=== PATIENT | male | born 1980 | race Caucasian/White ===

== ENCOUNTER 2018-10-14 00:04 | Observation (INO) | payer MEDICAID ==
[~2018-10-14] VITALS: Ht 167.6 cm; Wt 72.9 kg
[2018-10-14] VITALS (7 sets, daily range): BP systolic 118–131; BP diastolic 63–87; PULSE 60–73; RESP 17–18; Ht 167.6 cm; Wt 72.9 kg
--- NOTE | 2018-10-14 00:35 | ERD ---
ER Documentation Chief Complaint Chief Complaint chest pain/sob/syncope around 11 am. seen at clinic today, sent for eval HPI The patient is a 38-year-old male, presenting to the ER because of substernal chest pain radiating to the left arm at 2 PM, 11/08, non-provoked, denies similar symptoms previously. He then had a syncopal episode and fell, denies headache, complains of dizziness, denies neck pain, denies chest pain with vom iting/radiation/exertion/diaphoresis, dyspnea, complains of diffuse abdominal pain more painful at the left upper quadrant, complains of painful urination, denies diarrhea/ constipation. He does not smoke nor drink or does illicit drug Past medical/surgical history: None ROS All systems reviewed and are negative except as per history of present illness. Allergies Allergies: Coded Allergies: No Known Drug Allergies (Verified Allergy, Unknown, 10/14/18) Physical Exam Vitals Vital Signs Date Temp Pulse Resp B/P (MAP) Pulse Ox O2 O2 Flow FiO2 Time Delivery Rate 10/14/18 98.0 55 18 131/81 99 Room Air 01:49 (98) 10/14/18 62 16 123/83 100 Room Air 01:49 (96) 10/14/18 98.0 62 18 143/88 99 00:13 (106) Physical Exam Const: No acute distress. Head: Atraumatic. Eyes: Normal Conjunctiva. ENT: Normal External Ears, Nose and Mouth. Neck: Full range of motion. No meningismus. Resp: Clear to auscultation bilaterally. Cardio: Regular rate and rhythm. Abd: Soft, non distended, normal bowel sounds, moderate left lower quadrant tenderness, no rigidity/rebound/CVA tenderness Skin: No petechiae or rashes. Back: No midline or flank tenderness. Ext: No cyanosis, or edema. Neur: Awake and alert. No focal deficit Psych: Normal Mood and Affect. Result Diagram: 10/14/180 10/14/18 0040 Results 24 hrs Laboratory Tests Test 10/14/18 00:40 10/14/18 01:48 10/14/18 03:21 White Blood Count 8.8 10^3/ul Red Blood Count 5.47 10^6/ul Hemoglobin 16.2 g/dl Hematocrit 46.2 % Mean Corpuscular Volume 84.5 fl Mean Corpuscular Hemoglobin 29.6 pg Mean Corpuscular 35.1 g/dl Hemoglobin Concent Red Cell Distribution Width 12.3 % Platelet Count 292 10^3/UL Mean Platelet Volume 11.0 fl Immature Granulocytes % 0.600 % Neutrophils % 53.6 % Lymphocytes % 33.4 % Monocytes % 7.6 % Eosinophils % 4.0 % Basophils % 0.8 % Nucleated Red Blood Cells % 0.0 /100WBC Immature Granulocytes # 0.050 10^3/ul Neutrophils # 4.7 10^3/ul Lymphocytes # 2.9 10^3/ul Monocytes # 0.7 10^3/ul Eosinophils # 0.4 10^3/ul Basophils # 0.1 10^3/ul Nucleated Red Blood Cells # 0.0 10^3/ul D-Dimer 270.29 ng/ml D-Dimer Comment Sodium Level 141 mmol/L Potassium Level 3.7 mmol/L Chloride Level 101 mmol/L Carbon Dioxide Level 29 mmol/L Anion Gap 11 Blood Urea Nitrogen 22 mg/dl Creatinine 0.97 mg/dl Est Glomerular Filtrat Rate mL/min > 60 mL/min Glucose Level 117 mg/dl Calcium Level 9.7 mg/dl Total Bilirubin 0.4 mg/dl Direct Bilirubin 0.00 mg/dl Indirect Bilirubin 0.4 mg/dl Aspartate Amino Transf (AST/SGOT) 35 IU/L Alanine 71 IU/L Aminotransferase (ALT/SGPT) Alkaline Phosphatase 78 IU/L Troponin I 0.019 ng/ml Total Protein 8.0 g/dl Albumin 4.5 g/dl Globulin 3.50 g/dl Albumin/Globulin Ratio 1.28 Lipase 97 U/L Ethyl Alcohol Level < 10.0 mg/dl Bedside Glucose 103 mg/dL Bedside Urine pH (LAB) 6.5 Bedside Urine Protein (LAB) Negative Bedside Urine Glucose (UA) Negative Bedside Urine Ketones (LAB) Negative Bedside Urine Blood Negative Bedside Urine Nitrite (LAB) Negative Bedside Urine Leukocyte Esterase Negative (L Current Medications Medications Dose Sig/Dalton Start Time Status Last (Trade) Ordered Route PRN Stop Time Admin Dose Reason Admin Ketorolac 15 mg ONCE STAT 10/14/18 DC 10/14/18 Tromethamine IV 02:58 03:19 (Toradol) 10/14/18 03:00 Procedures/[place] [id number] Radiology Main Line: [phone] DIAGNOSTIC IMAGING REPORT Patient: IRCHARD SHAFFER : 1980 Age: 38 Sex: M MR #: [id number] [facility] #: [id number] DOS: 10/14/18 0124 Ordering MD: IRENE LU MD Location: E/R Room/Bed: PROCEDURE: CT ABDOMEN/PELVIS WITHOUT CONTRAST CLINICAL INDICATION: 38-year-old male with left lower quadrant abdominal pain. TECHNIQUE: The study was performed utilizing a [employer] VCT 64-slice CT scanner. Direct axial sections were obtained through the abdomen and pelvis without the use of intravenous contrast material. Sagittal and coronal reformations were obtained. One or more of the following dose reduction techniques were utilized: automated exposure control, adjustment of the mA and/or kV according to patient's size, use of iterative reconstruction technique. DICOM images are available. The images were reviewed on a PACS work station. CTD/vol = 14.54 mGy; Total Exam DLP = 853.39 mGy.cm. COMPARISON: None. FINDINGS: There is minimal bibasilar subsegmental atelectasis. There is a calcified 3 mm granuloma within the right lung base on axial image 3-9. There is no evidence for significant pleural effusion. The liver has a normal size and contour without focal areas of abnormal density. No intrahepatic nor extrahepatic biliary ductal dilatation is seen. The gallbladder is partially collapsed without evidence for calcified stones, significant wall thickening or pericholecystic fluid. The pancreas is without areas of abnormal attenuation. The spleen is identified and has a normal size without abnormal density. The adrenal glands are unremarkable. The kidneys are without abnormal density. No hydroureteronephrosis nor nephroureterolithiasis is evident. The urinary bladder contains urine. There is mild thickening and fluid identified throughout the small bowel suggestive of an enteritis. There is mild retained stool identified within the colon without obstruction. The appendix is visualized and is without abnormal thickening or surrounding inflammatory reaction. The prostate is not enlarged. There is no significant free fluid. Shotty mesenteric lymph nodes are present. The aortoiliac vessels are without aneurysmal dilatation. There are limbus vertebra identified within the anterosuperior aspect of the L3 and L4 vertebral bodies. IMPRESSION: 1. Mild thickening and fluid throughout the small bowel suggestive of an enteritis. 2. Retained stool without obstruction. 3. No CT evidence for appendicitis. 4. Shotty mesenteric lymph nodes. 5. Right lung base 3 mm granuloma. .Rafael Charles MD, Date Time Electronically viewed and signed by .Rafael Charles MD, MD on 10/14/2018 02:28 .M/ CC: IRENE LU MD [id number] [place] [address] Radiology Main Line: [phone] DIAGNOSTIC IMAGING REPORT Patient: RICHARD SHAFFER : 1980 Age: 38 Sex: M MR #: [id number] DOS: 10/14/18 0124 Ordering MD: IRENE LU MD Location: E/R Room/Bed: PROCEDURE: CT BRAIN WITHOUT CONTRAST CLINICAL INDICATION: 38-year-old male with syncope. TECHNIQUE: The study was performed utilizing [employer] VCT 64-slice CT scanner. Direct axial sections were obtained from the foramen magnum to the vertex without the use of intravenous contrast material. Sagittal and coronal reformations were obtained. One or more of the following dose reduction techniques were utilized: automated exposure control, adjustment of the mA and/or kV according to patient's size or use of iterative reconstruction technique. DICOM images are available. The images were viewed on a PACS workstation. CTD/vol = 39.64 mGy; Total Exam DLP = 634.23 mGy.cm. COMPARISON: None. FINDINGS: The ventricles have a normal size, shape and position. There is no evidence for mass effect or midline shift. There are no intracranial areas of abnormal attenuation. There is no evidence for acute intra or extra-axial blood. The bony calvarium is intact. The partially visualized paranasal sinuses and mastoid air cells are without significant abnormal soft tissue. IMPRESSION: Unremarkable noncontrast CT scan of the brain. .Rafael Charles MD, MD Date Time Electronically viewed and signed by .Rafael Charles MD, MD on 10/14/2018 02:21 .M/ CC: IRENE LU MD [id number] [place] [address] Radiology Main Line: [phone] DIAGNOSTIC IMAGING REPORT Patient: RICHARD SHAFFER : 1980 Age: 38 Sex: M MR #: [id number] DOS: 10/14/18 0124 Ordering MD: IRENE LU MD Location: E/R Room/Bed: PROCEDURE: CHEST - 1 VIEW CLINICAL INDICATION: 38-year-old male with syncope. TECHNIQUE: A single frontal upright AP portable view of the chest was performed. The images were reviewed on a PACS workstation. COMPARISON: None. FINDINGS: The cardiomediastinal silhouette has a normal appearance. There is a shallow inspiration. There is minimal bibasilar subsegmental atelectasis. There is no evidence for an infiltrate. There is no evidence for congestive heart failure. There is no evidence for pneumothorax. The osseous structures are intact. IMPRESSION: Shallow inspiration with minimal bibasilar subsegmental atelectasis. .Rafael Charles MD, MD Date Time Electronically viewed and signed by .Rafael Charles MD, MD on 10/14/2018 02:29 .M/ CC: IRENE LU MD [id number] EKG: Read by emergency physician Rate/Rhythm: Sinus bradycardia 57 beats/min QRS, ST, T-waves: No ST elevation, no T inversion Impression: Abnormal EKG UDS Pending MEDICAL MAKING DECISION: The patient is a 38-year-old male, presenting with acute chest pain, acute syncope. He was treated with Toradol 50 mg IV for pain The differential diagnoses for acute chest pain considered include but are not limited to acute coronary syndrome, acute myocardial infarction, pericarditis, pulmonary embolism, aortic dissection, pneumonia, pleural effusion, pneumothorax, GERD, chest wall pain. The differential diagnoses for acute syncope considered include but are not limited to arrhythmogenic right ventricular dysplasia, Brugada syndrome, left ventricular hypertrophy, pulmonary embolism, QT abnormality, Revg-[id number]-Ophnd. Departure Diagnosis: Primary Impression: Syncope Additional Impression: Chest pain Condition: Stable Comments The patient's blood pressure was elevated (>120/80) but appears stable without evidence of hypertension emergency or urgency. The patient was counseled about the risks of hypertension and urged to pursue outpatient monitoring and therapy within a week with their primary care physician. I discussed the findings with the patient. I discussed the patient with Dr Durand at 3 am , who was made aware of the lab, the treatment, the patient condition. The patient is admitted to [facility] Disclaimer: Inadvertent spelling and grammatical errors are likely due to E HR/dictation software use and do not reflect on the overall quality of patient care. Also, please note that the electronic time recorded on this note does not necessarily reflect the actual time of the patient encounter. IRENE LU MD Oct 14, 2018 00:35
[2018-10-14] MEDS ORDERED: KETOROLAC 15 MG INJ IV STA (02:58)
--- NOTE | 2018-10-14 04:18 | HP ---
Date/Time of Note Date/Time of Note DATE: 10/14/18 TIME: 04:16 Assessment/Plan VTE Prophylaxis SCD applied (from Nsg): Yes Pharmacological prophylaxis: NA/contraindicated Pharm contraindication: low risk/ambulating Lines/Catheters IV Catheter Type (from Nrsg): Saline Lock Assessment/Plan Hospital Course This is a 38-year male being admitted to the telemetry floor for observation for: #1 chest pain: Rule out ACS versus other. Will check cardiac enzymes x3, the first that was negative. EKG is nonischemic.Will check echocardiogram. Will check hemoglobin and C, lipid panel, TSH, Consider cardio consult #2 syncopal episode: Arrhythmia versus vasovagal versus versus situational. In the setting of chest pain. Will check for arrhythmias, cardiac etiology. Will check carotid Dopplers. Will check an echocardiogram. Will check orthostatics. #3 abdominal pain: Possibly secondary to underlying enteritis, constipation. We will put the patient currently on a brat diet., Stool softeners. No signs of fevers. #4 DVT GI prophylaxis: SCDs, no GI prophylaxis indicated further treatment strategy will be implemented as per the clinical course. Result Diagram: 10/14/18 0040 10/14/18 0040 Results 24hrs Laboratory Tests Test 10/14/18 00:40 10/14/18 01:48 10/14/18 03:10 10/14/18 03:21 White Blood Count 8.8 Red Blood Count 5.47 Hemoglobin 16.2 Hematocrit 46.2 Mean Corpuscular 84.5 Volume Mean Corpuscular 29.6 Hemoglobin Mean Corpuscular 35.1 Hemoglobin Concent Red Cell 12.3 Distribution Width Platelet Count 292 Mean Platelet Volume 11.0 H Immature 0.600 H Granulocytes % Neutrophils % 53.6 Lymphocytes % 33.4 Monocytes % 7.6 Eosinophils % 4.0 Basophils % 0.8 Nucleated Red Blood 0.0 Cells % Immature 0.050 H Granulocytes # Neutrophils # 4.7 Lymphocytes # 2.9 Monocytes # 0.7 Eosinophils # 0.4 Basophils # 0.1 Nucleated Red Blood 0.0 Cells # D-Dimer 270.29 D-Dimer Comment Sodium Level 141 Potassium Level 3.7 Chloride Level 101 Carbon Dioxide Level 29 Anion Gap 11 Blood Urea Nitrogen 22 H Creatinine 0.97 Est Glomerular > 60 Filtrat Rate mL/min Glucose Level 117 Calcium Level 9.7 Total Bilirubin 0.4 Direct Bilirubin 0.00 Indirect Bilirubin 0.4 Aspartate Amino 35 Transf (AST/SGOT) Alanine 71 H Aminotransferase (AL T/SGPT) Alkaline Phosphatase 78 Troponin I 0.019 Total Protein 8.0 Albumin 4.5 Globulin 3.50 H Albumin/Globulin 1.28 Ratio Lipase 97 Ethyl Alcohol Level < 10.0 H Bedside Glucose 103 Urine Opiates Screen Negative Urine Barbiturates Negative Urine Amphetamines Negative Screen Urine Negative Benzodiazepines Screen Urine Cocaine Screen Negative Urine Cannabinoids Negative Bedside Urine pH 6.5 (LAB) Bedside Urine Negative Protein (LAB) Bedside Urine Negative Glucose (UA) Bedside Urine Negative Ketones (LAB) Bedside Urine Blood Negative Bedside Urine Negative Nitrite (LAB) Bedside Urine Negative Leukocyte Esterase (L HPI/ROS Admit Date/Time Admit Date/Time Hx of Present Illness cc: cp, syncope The patient is a 38-year-old male, presenting to the ER for chest pain. He reports having chest pain radiating to the left arm at 2 PM, 7/10. After the chest pain, he then fainted and fell. He denies headache, patient also was complaining of abdominal pain in the emergency department at the left upper quadrant. He had CT of the abdomen pelvis that was done which shows signs of possible enteritis and constipation. Denies any illicit drug use or smoking. allergies: nkda meds: none ROS Const: As per HPI Eyes : No pain discharge or redness or change in visual acuity ENT: No pain, sore throat, congestion, congestion, dysphagia or discharge Respiratory: No shortness of breath, cough, sputum, wheezing, or pleuritic pain Cardiovascular: As per HPI GI : As per HPI Genitourinary: No dysuria, hematuria, flank pain , discharge or CVA tenderness Musculoskeletal: No joint pain, back pain, neck pain, restricted range of motion in neck or joints Skin: No rash, bruising or hives Neuro: No headache, dizziness, syncope, seizure, focal weakness Endocrine: No polyuria, polydipsia, temperature intolerance Psych: No hallucination, depression, anxiety or suicidal ideation PMH/Family/Social Past Medical History Medical History: no pertinent history Coded Allergies: No Known Drug Allergies (Verified Allergy, Unknown, 10/14/18) Past Surgical History Past Surgical Hx: no surgical history Family History Significant Family History: no pertinent family hx Social History Alcohol Use: none Smoking Status: Never smoker Drug Use: none Exam/Review of Systems Vital Signs Vitals Vital Signs Date Temp Pulse Resp B/P (MAP) Pulse Ox O2 O2 Flow FiO2 Time Delivery Rate 10/14/18 98.0 55 18 131/81 99 Room Air 01:49 (98) Exam Exam General: Patient is a pleasant male currently lying in bed in no acute distress HEENT: Atraumatic, normocephalic. The pupils are equal, round and reactive. Extraocular motor are intact Neck: Supple with full range of motion. No rigidity or meningismus Chest: Nontender Lungs: Clear to auscultation bilaterally no crackles rales or wheezing Heart: Normal S1-S2, Regular rhythm and rate. No murmur, S3, or S4 Abdomen: Soft , nontender, nondistended , bowel sounds are present. No guarding no rebound tenderness , No masses or organomegaly. No costovertebral temporal angle mass Extremities: Normal to inspection, no edema no cyanosis Neurologic: Normal mental status, speech normal, cranial nerves II through XII are intact, motor and sensory are intact, Additional Comments EKG: Read by emergency physician Rate/Rhythm: Sinus bradycardia 57 beats/min QRS, ST, T-waves: No ST elevation, no T inversion PROCEDURE: CT ABDOMEN/PELVIS WITHOUT CONTRAST CLINICAL INDICATION: 38-year-old male with left lower quadrant abdominal pain. TECHNIQUE: The study was performed utilizing a [employer] VCT 64-slice CT scanner. Direct axial sections were obtained through the abdomen and pelvis without the use of intravenous contrast material. Sagittal and coronal reformations were obtained. One or more of the following dose reduction techniques were utilized: automated exposure control, adjustment of the mA and/or kV according to patient's size, use of iterative reconstruction technique. DICOM images are available. The images were reviewed on a PACS workstation. CTD/vol = 14.54 mGy; Total Exam DLP = 853.39 mGy.cm. COMPARISON: None. FINDINGS: There is minimal bibasilar subsegmental atelectasis. There is a calcified 3 mm granuloma within the right lung base on axial image 3-9. There is no evidence for significant pleural effusion. The liver has a normal size and contour without focal areas of abnormal density. No intrahepatic nor extrahepatic biliary ductal dilatation is seen. The gallbladder is partially collapsed without evidence for calcified stones, significant wall thickening or pericholecystic fluid. The pancreas is without areas of abnormal attenuation. The spleen is identified and has a normal size without abnormal density. The adrenal glands are unremarkable. The kidneys are without abnormal density. No hydroureteronephrosis nor nephroureterolithiasis is evident. The urinary bladder contains urine. There is mild thickening and fluid identified throughout the small bowel suggestive of an enteritis. There is mild retained stool identified within the colon without obstruction. The appendix is visualized and is without abnormal thickening or surrounding inflammatory reaction. The prostate is not enlarged. There is no significant free fluid. Shotty mesenteric lymph nodes are present. The aortoiliac vessels are without aneurysmal dilatation. The re are limbus vertebra identified within the anterosuperior aspect of the L3 and L4 vertebral bodies. IMPRESSION: 1. Mild thickening and fluid throughout the small bowel suggestive of an enteritis. 2. Retained stool without obstruction. 3. No CT evidence for appendicitis. 4. Shotty mesenteric lymph nodes. 5. Right lung base 3 mm granuloma. .Rafael Charles MD, MD Date Time Electronically viewed and signed by .Rafael Charles MD, MD on 10/14/2018 02:28 .M/ CC: IRENE LU MD [phone] PROCEDURE: CT BRAIN WITHOUT CONTRAST CLINICAL INDICATION: 38-year-old male with syncope. TECHNIQUE: The study was performed utilizing [employer] V[employer] 64-slice CT scanner. Direct axial sections were obtained from the foramen magnum to the vertex without the use of intravenous contrast material. Sagittal and coronal reformations were obtained. One or more of the following dose reduction techniques were utilized: automated exposure control, adjustment of the mA and/or kV according to patient's size or use of iterative reconstruction technique. DICOM images are available. The images were viewed on a PACS workstation. CTD/vol = 39.64 mGy; Total Exam DLP = 634.23 mGy.cm. COMPARISON: None. FINDINGS: The ventricles have a normal size, shape and position. There is no evidence for mass effect or midline shift. There are no intracranial areas of abnormal attenuation. There is no evidence for acute intra or extra-axial blood. The bony calvarium is intact. The partially visualized paranasal sinuses and mastoid air cells are without significant abnormal soft tissue. IMPRESSION: Unremarkable noncontrast CT scan of the brain. .Rafael Charles MD, MD Date Time Electronically viewed and signed by .Rafael Charles MD, MD on 10/14/2018 02:21 .M/ CC: IRENE LU MD [phone] PROCEDURE: CHEST - 1 VIEW CLINICAL INDICATION: 38-year-old male with syncope. TECHNIQUE: A single frontal upright AP portable view of the chest was performed. The images were reviewed on a PACS workstation. COMPARISON: None. FINDINGS: The cardiomediastinal silhouette has a normal appearance. There is a shallow inspiration. There is minimal bibasilar subsegmental atelectasis. There is no evidence for an infiltrate. There is no evidence for congestive heart failure. There is no evidence for pneumothorax. The osseous structures are intact. IMPRESSION: Shallow inspiration with minimal bibasilar subsegmental atelectasis. .Rafael Charles MD, MD Date Time Electronically viewed and signed by .Rafael Charles MD, MD on 10/14/2018 02:29 .M/ CC: IRENE LU MD [id number] JW LARIOS Oct 14, 2018 04:18
[2018-10-14] MEDS ORDERED: ACETAMINOPHEN 325 MG TAB PO PRN (04:30)
[2018-10-14] MEDS ORDERED: NACL 0.9% 3 ML SYG IV SCH (04:30)
[2018-10-14] MEDS ORDERED: NITROGLYCERIN (SL) 0.4 MG TAB SL PRN (04:30)
[2018-10-14] MEDS ORDERED: BISACODYL (EC) 5 MG TAB PO PRN (04:30)
[2018-10-14] MEDS ORDERED: DOCUSATE SODIUM 100 MG CAP PO PRN (04:30)
[2018-10-14] MEDS ORDERED: ONDANSETRON 4 MG INJ IV PRN (04:30)
[2018-10-14] MEDS ORDERED: morphine 2 MG INJ IV PRN (04:30)
[2018-10-14] MEDS: DOCUSATE SODIUM 100 MG CAP PO SCH ×2 (09:00→20:31)
[2018-10-14] MEDS: ASPIRIN 81 MG TAB PO SCH (09:00)
--- NOTE | 2018-10-14 14:51 | PN ---
Date/Time of Note Date/Time of Note DATE: 10/14/18 TIME: 14:44 Assessment/Plan VTE Prophylaxis SCD applied (from Nsg): Yes Pharmacological prophylaxis: NA/contraindicated Pharm contraindication: low risk/ambulating Lines/Catheters IV Catheter Type (from Nrsg): Saline Lock Assessment/Plan Assessment/Plan 38 yo man no PMH presents with chest pain followed by syncope. # chest pain #Syncope - Patient reports almost 12 hours of pressure-like chest pain and dyspnea followed by syncope. He reports having chest pain for almost a year on and off. - Father had "enlarged heart" - Labs so far unremarkable, except for subclinical hypothyroidism. - Trops negative x3. - EKG with early repolarization abnormality, otherwise normal. - Likely will need CT coronary angiogram versus stress test prior to discharge - 24 hours telemetry monitoring. - Dr. Stockton consulted. #Abdominal pain - resolved. # DVT GI prophylaxis: SCDs, no GI prophylaxis indicated Result Diagram: 10/14/1852810/14/18528 Subjective 24 Hr Interval Summary Free Text/Dictation No acute overnight events. No events on telemetry. History is unusual. 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 On Tuesday (day of admission) he developed pressure-like chest pain soon after noon but continued working, pain remained constant; and it wasn't until he was about to go to bed around midnight that he lost consciousness and fell to the floor. He reports he still has chest pain currently. Exam/Review of Systems Exam Vitals Vital Signs Date Temp Pulse Resp B/P (MAP) Pulse Ox O2 O2 Flow FiO2 Time Delivery Rate 10/14/18 60 12:17 10/14/18 97.5 18 123/78 Room Air 10:57 (93) 10/14/18 98 10:00 Exam General: Subdued young man lying in bed in no acute distress. Psych: Very blunted affect, mumbling speech. Cooperative with exam. HEENT: Atraumatic, normocephalic. The pupils are equal, round and reactive. Extraocular motor are intact Neck: Supple with full range of motion. No JVD. Chest: Nontender Lungs: Clear to auscultation bilaterally no crackles rales or wheezing Heart: Normal S1-S2, Regular rhythm and rate. No murmur, S3, or S4 Abdomen: Soft , nontender, nondistended , bowel sounds are present. Extremities: Normal to inspection, no edema no cyanosis Results Results 24hrs Laboratory Tests Test 10/14/18 00:40 10/14/18 01:48 10/14/18 03:10 10/14/18 03:21 White Blood Count 8.8 Red Blood Count 5.47 Hemoglobin 16.2 Hematocrit 46.2 Mean Corpuscular 84.5 Volume Mean Corpuscular 29.6 Hemoglobin Mean Corpuscular 35.1 Hemoglobin Concent Red Cell 12.3 Distribution Width Platelet Count 292 Mean Platelet Volume 11.0 H Immature 0.600 H Granulocytes % Neutrophils % 53.6 Lymphocytes % 33.4 Monocytes % 7.6 Eosinophils % 4.0 Basophils % 0.8 Nucleated Red Blood 0.0 Cells % Immature 0.050 H Granulocytes # Neutrophils # 4.7 Lymphocytes # 2.9 Monocytes # 0.7 Eosinophils # 0.4 Basophils # 0.1 Nucleated Red Blood 0.0 Cells # D-Dimer 270.29 D-Dimer Comment Sodium Level 141 Potassium Level 3.7 Chloride Level 101 Carbon Dioxide Level 29 Anion Gap 11 Blood Urea Nitrogen 22 H Creatinine 0.97 Est Glomerular > 60 Filtrat Rate mL/min Glucose Level 117 Calcium Level 9.7 Total Bilirubin 0.4 Direct Bilirubin 0.00 Indirect Bilirubin 0.4 Aspartate Amino 35 Transf (AST/SGOT) Alanine 71 H Aminotransferase (AL T/SGPT) Alkaline Phosphatase 78 Troponin I 0.019 Total Protein 8.0 Albumin 4.5 Globulin 3.50 H Albumin/Globulin 1.28 Ratio Lipase 97 Free Thyroxine 0.97 Ethyl Alcohol Level < 10.0 H Bedside Glucose 103 Urine Opiates Screen Negative Urine Barbiturates Negative Urine Amphetamines Negative Screen Urine Negative Benzodiazepines Screen Urine Cocaine Screen Negative Urine Cannabinoids Negative Bedside Urine pH 6.5 (LAB) Bedside Urine Negative Protein (LAB) Bedside Urine Negative Glucose (UA) Bedside Urine Negative Ketones (LAB) Bedside Urine Blood Negative Bedside Urine Negative Nitrite (LAB) Bedside Urine Negative Leukocyte Esterase (L Test 10/14/18 05:29 10/14/18 10:52 White Blood Count 7.8 Red Blood Count 5.55 Hemoglobin 16.4 Hematocrit 47.1 Mean Corpuscular 84.9 Volume Mean Corpuscular 29.5 Hemoglobin Mean Corpuscular 34.8 Hemoglobin Concent Red Cell 12.4 Distribution Width Platelet Count 283 Mean Platelet Volume 10.6 H Immature 0.500 H Granulocytes % Neutrophils % 49.0 Lymphocytes % 37.3 Monocytes % 8.2 Eosinophils % 4.1 Basophils % 0.9 Nucleated Red Blood 0.0 Cells % Immature 0.040 H Granulocytes # Neutrophils # 3.8 Lymphocytes # 2.9 Monocytes # 0.6 Eosinophils # 0.3 Basophils # 0.1 Nucleated Red Blood 0.0 Cells # Sodium Level 139 Potassium Level 4.1 Chloride Level 102 Carbon Dioxide Level 27 Anion Gap 10 Blood Urea Nitrogen 19 Creatinine 0.94 Est Glomerular > 60 Filtrat Rate mL/min Glucose Level 112 Hemoglobin A1c 5.5 Calcium Level 9.6 Magnesium Level 2.0 Total Bilirubin 0.4 Direct Bilirubin 0.00 Indirect Bilirubin 0.4 Aspartate Amino 33 Transf (AST/SGOT) Alanine 71 H Aminotransferase (AL T/SGPT) Alkaline Phosphatase 70 Creatine Kinase 149 121 Creatine Kinase 1.5 1.3 Index Creatinine Kinase MB 2.30 1.63 (Mass) Troponin I < 0.012 < 0.012 Total Protein 7.3 Albumin 4.4 Globulin 2.90 Albumin/Globulin 1.51 Ratio Triglycerides Level 268 H Cholesterol Level 226 H LDL Cholesterol, 141 Calculated HDL Cholesterol 31 Cholesterol/HDL 7.2 Ratio Thyroid Stimulating 5.740 H Hormone (TSH) Medications Medication Current Medications IV Flush (NS 3 ml) 3 ml PER PROTOCOL IV ; Start 10/14/18 at 04:30 Ondansetron HCl (Zofran Inj) 4 mg Q6H PRN IV NAUSEA/VOMITING; Start 10/14/18 at 04:30 Aspirin (Aspirin) 81 mg DAILY PO Last administered on 10/14/18at 09:00; Admin Dose 81 MG; Start 10/14/18 at 09:00 Nitroglycerin (Nitroglycerin (Sl Tab) 0.4 Mg) 1 tab Q5M PRN SL .CHEST PAIN; Start 10/14/18 at 04:30 Acetaminophen (Tylenol Tab) 650 mg Q6H PRN PO .PAIN 1-3 OR TEMP; Start 10/14/18 at 04:30 Morphine Sulfate (morphine) 2 mg Q4H PRN IV .PAIN 7-10; Start 10/14/18 at 04:30 Docusate Sodium (Colace) 100 mg Q12H PRN PO .CONSTIPATION; Start 10/14/18 at 04:30 Bisacodyl (Dulcolax) 5 mg DAILY PRN PO .CONSTIPATION; Start 10/14/18 at 04:30 Docusate Sodium (Colace) 100 mg BID PO ; Start 10/14/18 at 09:00 TAYLA COPE MD Oct 14, 2018 14:51
[2018-10-14] MEDS: FAMOTIDINE 20 MG TAB PO SCH ×2 (16:32→20:31)
--- NOTE | 2018-10-14 17:49 | RADRPT ---
Echocardiogram Report Patient Name: RICHARD SHAFFERPatient ID: [id number] : 1980 (38y 7m)Study Date: 10/14/2018 1:45:23 PM Gender: MAccession #: [id number] Tech: Reta Villagomez [facility] Location: [id number] Ref.Physician: JW LARIOS Height(Cm): BSA: Weight(Kg): Quality: AdequateOrder Physician: JW LARIOS Account #: Procedures: Echocardiographic Report: Transthoracic echocardiogram with complete 2D, M-Mode, and doppler examination. Indications: Chest Pain. Measurements: 2D/M Mode Doppler Measurement Value Normal Range Measurement Value Normal Range LVIDd 2D 4.3 [ 4.2 - 5.8 ] cm AV Peak Lobito 1.3 [ 100.0 - 170.0 ] cm/se c LVIDs 2D 3.0 [ 2.5 - 4.0 ] cm AV Peak PG 6.0 [ 2.0 - 9.0 ] mmHg LVPWd 2D 1.0 [ 0.6 - 1.0 ] cm LVOT Peak [place] 0.9 [ 70.0 - 110.0 ] cm/sec IVSd 2D 1.0 [ 0.6 - 1.0 ] cm LVOT Peak PG 3.0 [ 2.0 - 6.0 ] mmHg AoR Diam 2D 2.7 [ 2.6 - 3.4 ] cm MV E Peak L[place]ito 0.4 [ 60.0 - 130.0 ] cm/sec EDV 2D 84.0 [ 62.0 - 150.0 ] ml MV A Peak [place]ito 0.3 [ 100.0 - 120.0 ] cm/se c ESV 2D 34.2 [ 21.0 - 61.0 ] ml MV E/A 1.2 [ 0.8 - 1.5 ] ratio EF 2D 59.3 [ 52.0 - 72.0 ] percent MV PHT 105.0 [ 20.0 - 100.0 ] msec LA Dimen 2D 2.6 [ 3.0 - 4.0 ] cm MV Decel Time 359 [ 104 - 258 ] msec MV Decel Adams 1 Lat E` Lobito 0.1 [ 10.0 - 15.0 ] cm/sec Lateral E/E` 3.1 [ 1.0 - 2.0 ] ratio Med E` Lobito 0.1 cm/sec MV E/A 1.2 [ 0.8 - 1.5 ] ratio MVA PHT 2.1 [ 2.0 - 4.0 ] cm2 Findings: Left Ventricle: Normal left ventricular systolic function. Normal left ventricular cavity size. Normal left ventricular wall thickness. Ejection fraction is visually estimated at 55-60 %. Tissue Doppler/Mitral Doppler indices are within normal limits. Right Ventricle: Normal right ventricular size. Normal right ventricular systolic function. Left Atrium: The left atrium is normal in size. Right Atrium: The right atrium is normal in size. Mitral Valve: Normal appearance of the mitral valve. Trace mitral regurgitation. Aortic Valve: Normal appearance of the aortic valve. No aortic regurgitation. Tricuspid Valve: Normal appearance of the tricuspid valve. There is trace tricuspid regurgitation. Pulmonic Valve: Normal pulmonic valve appearance. No evidence of pulmonic regurgitation. Pericardium: Normal pericardium with no significant pericardial effusion. Aorta: Normal aortic root. IVC: Normal size and normal respiratory collapse consistent with normal right atrial pressure. Conclusions: Normal left ventricular systolic function. Normal left ventricular cavity size. Normal left ventricular wall thickness. Ejection fraction is visually estimated at 55-60 %. Tissue Doppler/Mitral Doppler indices are within normal limits. Normal right ventricular size. Normal right ventricular systolic function. Trace mitral regurgitation. There is trace tricuspid regurgitation. Normal pericardium with no significant pericardial effusion. Electronically Signed By: Patrick Stockton 2018-10-14 17:48:31 PDT
[2018-10-14] MEDS ORDERED: ATORVASTATIN 40 MG TAB PO SCH (21:00)
[2018-10-15] VITALS: PULSE 58
--- NOTE | 2018-10-15 03:44 | CONS ---
DATE OF ADMISSION: 10/14/2018 DATE OF CONSULTATION: 10/14/2018 REASON FOR CONSULTATION: Chest pain with syncopal episode. HISTORY OF PRESENT ILLNESS: The patient is a 38-year-old gentleman who comes in with a constant ches t pain associated with syncopal episode. He does complain of numbness and radiation to the left uppe r extremity. Denies nausea, vomiting. Denies shortness of breath, dizziness or palpitation. Denies fever, chills, or rigors. Denies history of coronary artery disease. FAMILY HISTORY: Denies myocardial infarction or sudden cardiac . PAST SURGICAL HISTORY: None. SOCIAL HISTORY: No smoking, alcohol, or recreational drugs. ALLERGIES: None. CURRENT MEDICATIONS: Include aspirin. REVIEW OF SYSTEMS: Unremarkable except that mentioned in the HPI. PHYSICAL EXAMINATION: VITAL SIGNS: Temperature 97.5, heart rate of 60, blood pressure 123/78 mmHg, breathing at 18, satura ting 98% on room air. GENERAL: Patient awake, alert, oriented, no apparent distress. NECK: No JVD or carotid bruit. CARDIOVASCULAR: Regular rate and rhythm. No murmur, rub or gallop. LUNGS: Clear to auscultation. ABDOMEN: Soft. Bowel sounds are present. There is no organomegaly. EXTREMITIES: No pedal edema. Review of 12-lead EKG shows sinus bradycardia with a ventricular rate of 57 beats per minute with [place], normal QRS and normal QT interval with changes consistent with early repolarization. Chest x -ray shows no congestion or infiltrate. LABORATORY DATA: WBC 7.1, hemoglobin 16.5, hematocrit 47.1 with a platelet of 283. Sodium 139, pota ssium 4.1, chloride 102, CO2 27, BUN 19, creatinine 0.94. Troponin x3 is negative. LDL 141. 226, triglyceride 268 with HDL 31. ASSESSMENT AND PLAN: A 38-year-old gentleman with: 1. Syncopal episode, likely vasovagal in nature. 2. Atypical chest pain. 3. Dyslipidemia. 4. Recommend 2D echo to assess for left ventricular outflow obstruction. 5. Monitor on telemetry for 24 hours to rule out for any dysrhythmias. 6. Orthostatic x1. 7. Started on Lipitor 40 mg daily. Dictated By: WILLIAM GUERRA MD SR/NTS Conf#: [id number] DID#: [id number] CC: TAYLA COPE MD;*End*
[2018-10-15 03:59] VITALS: BP 116/70; PULSE 56; RESP 20
[2018-10-15 04:00] VITALS: BP_SYST 105; BP_SYST 106; BP_SYST 116; BP_DIAS 66; BP_DIAS 69; BP_DIAS 75; PULSE 57; PULSE 61; PULSE 76; PULSE 91; RESP 18; RESP 20
[2018-10-15 07:34] VITALS: BP 109/69; PULSE 66; RESP 20
[2018-10-15 08:00] VITALS: PULSE 76
[2018-10-15] MEDS: FAMOTIDINE 20 MG TAB PO SCH (08:03)
[2018-10-15] MEDS: ASPIRIN 81 MG TAB PO SCH (08:03)
[2018-10-15] MEDS: DOCUSATE SODIUM 100 MG CAP PO SCH (08:03)
--- NOTE | 2018-10-15 11:01 | PDOCDIS ---
Discharge Instructions DIAGNOSIS Discharge Diagnosis Noncardiac chest discomfort CONDITION [id number] Patient Condition: [id number] Good HOME CARE INSTRUCTIONS: [id number] Diet Instructions: [id number] Regular ACTIVITY: [id number] Activity Restrictions: [id number] No Restrictions FOLLOW UP/APPOINTMENTS Follow-up Plan 1. Get 30 minutes of exercise per day at least 3 times per weeks. 2. If you ever develop pressure-like chest pain that does not resolve with rest, return to the emergency room. TAYLA COPE MD Oct 15, 2018 11:01
[2018-10-15] MEDS ORDERED: ATOR40TA68 PO (11:04)
[2018-10-15] MEDS ORDERED: ASPI-831 PO (11:04)
--- NOTE | 2018-10-15 13:40 | DS ---
Date/Time of Note Date/Time of Note DATE: 10/15/18 TIME: 13:35 Discharge Summary Admission/Discharge Info Admit Date/Time Oct 14, 2018 at 03:00 Discharge Date/Time Oct 15, 2018 at 11:52 Discharge Diagnosis Noncardiac chest discomfort Patient Condition: Good Consults Dr. Stockton, cardiology Procedures None Hx of Present Illness The patient is a 38-year-old man, presenting to the ER for chest pain. He reports having chest pain radiating to the left arm starting at 2 PM, 11/08. This lasted all day. He was getting ready for bed around midnight when he sudd enly lost consciousness and fell. He denies headache, patient also was complaining of abdominal pain in the emergency department at the left upper quadrant. He had CT of the abdomen pelvis that was done which shows signs of possible enteritis and constipation. Denies any illicit drug use or smoking. allergies: nkda meds: none Hospital Course The patient was admitted to telemetry. Chest pain completely resolved. Despite his abdominal CT findings he had no symptoms of enteritis; and tolerated diet well. He got an echocardiogram which was normal. Troponins were trended and negative. On 24 hours telemetry monitoring he had no arrhythmias. Syncope was likely vasovagal and chest pain was noncardiac. At time of discharge he had mild leukocytosis to 13, but this was considered not significant. He will be started on aspirin and a statin. Home Meds Active Scripts Atorvastatin* (Atorvastatin*) 40 Mg Tablet, 40 MG PO HS, #60 TAB 3 Refills Prov:TAYLA COPE MD 10/15/18 Aspirin (Aspirin) 81 Mg Chew, 81 MG PO DAILY, #60 TAB 3 Refills Prov:TAYLA COPE MD 10/15/18 Follow-up Plan 1. Get 30 minutes of exercise per day at least 3 times per weeks. 2. If you ever develop pressure-like chest pain that does not resolve with rest, return to the emergency room. Primary Care Provider Care Physician No Primary Time spent on discharge: > 30 minutes Pending Labs Laboratory Tests Test 10/14/18 15:31 10/15/18 05:38 Erythrocyte Sedimentation Rate 1 mm/Hr (0-15) White Blood Count 13.6 10^3/ul (4.8-10.8) Red Blood Count 5.49 10^6/ul (4.70-6.10) Hemoglobin 16.1 g/dl (14.0-18.0) Hematocrit 46.7 % (42.0-52.0) Mean Corpuscular Volume 85.1 fl (82.0-101.0) Mean Corpuscular Hemoglobin 29.3 pg (29.0-33.0) Mean Corpuscular Hemoglobin Concent 34.5 g/dl (32.0-37.0) Red Cell Distribution Width 12.4 % (11.5-14.5) Platelet Count 271 10^3/UL (140-415) Mean Platelet Volume 10.9 fl (7.4-10.4) Immature Granulocytes % 0.700 % (0.001-0.429) Neutrophils % 73.7 % (39.0-77.0) Lymphocytes % 15.6 % (15.0-51.0) Monocytes % 7.0 % (0.0-11.0) Eosinophils % 2.3 % (0.0-7.0) Basophils % 0.7 % (0.0-2.0) Nucleated Red Blood Cells % 0.0 /100WBC (0.0-0.0) Immature Granulocytes # 0.090 10^3/ul (0.0-0.031) Neutrophils # 10.1 10^3/ul (1.6-7.5) Lymphocytes # 2.1 10^3/ul (0.8-2.9) Monocytes # 1.0 10^3/ul (0.3-0.9) Eosinophils # 0.3 10^3/ul (0.0-0.5) Basophils # 0.1 10^3/ul (0.0-0.1) Nucleated Red Blood Cells # 0.0 10^3/ul (0.0-0.0) Sodium Level 140 mmol/L (135-144) Potassium Level 4.3 mmol/L (3.5-5.1) Chloride Level 103 mmol/L (97-110) Carbon Dioxide Level 28 mmol/L (21-31) Anion Gap 9 (5-13) Blood Urea Nitrogen 23 mg/dl (7-20) Creatinine 0.93 mg/dl (0.61-1.24) Est Glomerular Filtrat Rate mL/min > 60 mL/min (>60) Glucose Level 104 mg/dl (70-220) Calcium Level 8.8 mg/dl (8.4-10.2) Total Bilirubin 0.6 mg/dl (0.2-1.3) Direct Bilirubin 0.00 mg/dl (0.00-0.20) Indirect Bilirubin 0.6 mg/dl (0-1.1) Aspartate Amino Transf (AST/SGOT) 32 IU/L (15-46) Alanine Aminotransferase (ALT/SGPT) 65 IU/L (13-69) Alkaline Phosphatase 57 IU/L (42-121) Total Protein 7.1 g/dl (6.1-8.1) Albumin 3.9 g/dl (3.3-4.9) Globulin 3.20 g/dl (1.3-3.2) Albumin/Globulin Ratio 1.21 TAYLA COPE MD Oct 15, 2018 13:40
--- NOTE | 2018-10-15 13:53 | CONS ---
Assessment/Plan Assessment/Plan Assessment/Plan (Daily) ASSESSMENT AND PLAN: A 38-year-old gentleman with: 1. Syncopal episode, likely vasovagal in nature. 2. Atypical chest pain resolved 3. Dyslipidemia. Echo no LVOT Continue Protonix 40mg bid continue Lipitor Continue ASA Avoid Spicy food Consultation Date/Type/Reason Admit Date/Time Oct 14, 2018 at 03:00 Initial Consult Date Type of Consult Cardiology Date/Time of Note DATE: 10/15/18 TIME: 13:52 Exam/Review of Systems Vital Signs Vitals Vital Signs Date Temp Pulse Resp B/P (MAP) Pulse Ox O2 O2 Flow FiO2 Time Delivery Rate 10/15/18 76 08:00 10/15/18 97.7 20 109/69 97 Room Air 07:34 (82) Intake and Output 10/14/18 10/14/18 10/15/18 1515:00 23:00 07:00 IntakeIntake Total 100 ml 600 ml 750 ml BalanceBalance 100 ml 600 ml 750 ml Exam Constitutional: alert, oriented Head: normocephalic Neck: supple, non-tender Respiratory: clear to auscultation Cardiovascular: regular rate and rhythm (no m/r/g) Gastrointestinal: soft, non-tender Extremities: normal pulses Labs Result Diagram: 10/15/18 0538 10/15/18 0538 Results 24hrs Laboratory Tests Test 10/14/18 15:31 10/15/18 05:38 Erythrocyte Sedimentation Rate 1 White Blood Count 13.6 #H Red Blood Count 5.49 Hemoglobin 16.1 Hematocrit 46.7 Mean Corpuscular Volume 85.1 Mean Corpuscular Hemoglobin 29.3 Mean Corpuscular Hemoglobin Concent 34.5 Red Cell Distribution Width 12.4 Platelet Count 271 Mean Platelet Volume 10.9 H Immature Granulocytes % 0.700 H Neutrophils % 73.7 Lymphocytes % 15.6 Monocytes % 7.0 Eosinophils % 2.3 Basophils % 0.7 Nucleated Red Blood Cells % 0.0 Immature Granulocytes # 0.090 H Neutrophils # 10.1 H Lymphocytes # 2.1 Monocytes # 1.0 H Eosinophils # 0.3 Basophils # 0.1 Nucleated Red Blood Cells # 0.0 Sodium Level 140 Potassium Level 4.3 Chloride Level 103 Carbon Dioxide Level 28 Anion Gap 9 Blood Urea Nitrogen 23 H Creatinine 0.93 Est Glomerular Filtrat Rate mL/min > 60 Glucose Level 104 Calcium Level 8.8 Total Bilirubin 0.6 Direct Bilirubin 0.00 Indirect Bilirubin 0.6 Aspartate Amino Transf (AST/SGOT) 32 Alanine Aminotransferase (ALT/SGPT) 65 Alkaline Phosphatase 57 Total Protein 7.1 Albumin 3.9 Globulin 3.20 Albumin/Globulin Ratio 1.21 WILLIAM GUERRA M.D. Oct 15, 2018 13:53
== END 2018-10-15 11:52 | disposition home or self-care (01) ==
LOC: E/R 00:04 → TEL 03:00 → UNDOADMIN 03:00 → TEL 03:00 → SUATTDRO 08:41
PROVIDERS: ADMIT Internal Medicine; ATTEND Internal Medicine
DX: R07.89 Other chest pain (principal); R55 Syncope and collapse; E78.5 Hyperlipidemia, unspecified; R10.9 Unspecified abdominal pain
CPT/HCPCS: 36415; 70450; 71045; 74176; 80053; 80061; 80307; 81003; 82550; 82553; 82962; 83036; 83690; 83735; 84439; 84443; 84484; 85025; 85378; 85651; 87086; 93005; 93306; 93880; J1885; Z7500; Z7502; Z7610; G0378